=== PATIENT | female | born 1995 | race Caucasian/White ===

== ENCOUNTER 2024-12-22 09:33 | Inpatient (IN) | payer OTHER ==
[~2024-12-22] VITALS: Ht 167.6 cm; Wt 81.6 kg
--- NOTE | ~2024-12-22 | OR ---
[facility] [address], [place] [address] Draft DATE OF OPERATION: 12/23/2024 SURGEON: Taina Zheng DO PREOPERATIVE DIAGNOSES: 1. Intrauterine at 39 weeks gestation. 2. section by maternal request. 3. History of severe shoulder dystocia. 4. History of obstetric anal sphincter injury. POSTOPERATIVE DIAGNOSES: 1. Intrauterine at 39 weeks gestation. 2. section by maternal request. 3. History of severe shoulder dystocia. 4. History of obstetric anal sphincter injury. PROCEDURE PERFORMED: Primary low transverse section. 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 ANESTHESIA: Spinal with postoperative TAP blocks. COMPLICATIONS: None. DRAINS: Donahue to gravity. QUANTITATIVE BLOOD LOSS: 567 mL. SPECIMENS: Cord blood. FINDINGS: Delivery of viable female , 7 pounds 13 ounces with Apgars of 8 and 9 born in the HUMERA position via primary low transverse section. Normal uterus, tubes, and PATIENT NAME: CHANDLER CHEN OPERATIVE REPORT DATE OF : [birth year] REPORT #: [id number] PHYSICIAN: TAINA ZHENG (DEMARCUS) PCP: NO PRIMARY CARE PHYSICIAN REPORT IS CONFIDENTIAL AND NOT TO BE RELEASED WITHOUT AUTHORIZATION [address] [address] Draft ovaries. INDICATIONS: Ms. Chen is a very pleasant 29-year-old, G2, P1, who presents for primary . Last was complicated by undiagnosed macrosomia with resulting shoulder dystocia and injury including obstetric anal sphincter injury ([place]). After careful counseling, patient desires primary low-transverse section. Risks, benefits, and alternatives were discussed in detail with the patient. The patient understands and wished to proceed with the procedure. TECHNIQUE: The patient was taken the OR. A time-out was performed to confirm correct patient, correct procedure. Spinal anesthesia was adequately established. The patient was prepped and draped in the supine position with a bump on the right hip. Donahue catheter was inserted. Ancef 2 g preoperatively were given per SCIP protocol. No heparin was indicated. Once a neural axial anesthesia was adequate, a Pfannenstiel skin incision was made approximately 2 cm above the pubic symphysis and carried down to the fascia. The fascia was nicked in the midline. The fascial incision was extended bilaterally using curved Pantoja scissors. The rectus was divided from the fascia with a combination of blunt and sharp dissection. The peritoneum was entered bluntly and peritoneal incision was extended cephalad and caudad using sharp and blunt dissection. Brandon self retractor was placed and lower uterine segment identified. Hysterotomy was performed using a surgical scalpel for clear fluid. Hysterotomy was extended bilaterally using blunt dissection. The surgeon's hand was placed in the uterine cavity. The head elevated into the maternal abdomen and delivered with the assistance of fundal pressure. No nuchal cord was identified. The was vigorous and cried upon delivery. Cord was doubly clamped and cut and the handed to waiting pediatric team for further care. Cord blood was obtained for routine analysis. The placenta was expressed, intact with a centrally inserted three-vessel cord. Pitocin was administered per protocol and bleeding was quickly minimized. Hysterotomy was then repaired using 0 Monocryl in two layers. The first being a running lock suture and the second being a running imbricating suture in a vertical manner. Excellent hemostasis was appreciated. The pelvis was irrigated and found to be hemostatic. Normal uterus, tubes, and ovaries were appreciated. The Brandon self retractor was removed and the peritoneum was reapproximated using 2-0 Vicryl in a running nonlocked manner. The rectus was made hemostatic with judicious use of Bovie electrocautery and was loosely plicated in the midline using three interrupted sutures of 0 Vicryl. The fascia was then reapproximated using 0 Vicryl in a running nonlocked manner. Subcu was made hemostatic with Bovie electrocautery and was irrigated and found to be hemostatic. Subcu was reapproximated using 3-0 Vicryl in a running nonlocked manner. Skin was reapproximated using a subcuticular dissolvable christopher. The uterus was Crede'd for scant amount of blood. The patient remained in the OR for TAP block per Anesthesia. PATIENT NAME: CHANDLER CHEN OPERATIVE REPORT DATE OF : [birth year] REPORT #: [id number] PHYSICIAN: TAINA ZHENG (DEMARCUS) DO PCP: NO PRIMARY CARE PHYSICIAN REPORT IS CONFIDENTIAL AND NOT TO BE RELEASED WITHOUT AUTHORIZATION [facility] [address], [place] [address] Draft Sponge, needle, and instrument counts correct x2 at the end the procedure. Taina Zheng DO JDW/MODL /[id number] Copies: ~ PATIENT NAME: CHANDLER CHEN OPERATIVE REPORT DATE OF : [birth year] REPORT #: [id number] PHYSICIAN: TAINA ZHENG DO (JD) PCP: NO PRIMARY CARE PHYSICIAN REPORT IS CONFIDENTIAL AND NOT TO BE RELEASED WITHOUT AUTHORIZATION
[2024-12-22] MEDS ORDERED: LACTATED RINGER'S 1,000 ML IV SCH (17:45)
[2024-12-22] MEDS ORDERED: LACTATED RINGER'S 2,000 ML IV PRN (17:45)
[2024-12-23 05:41] LABS: AMPHETAMINES, URINE NEGATIVE (NEGATIVE); BARBITURATES, URINE NEGATIVE (NEGATIVE); BENZODIAZEPINE, URINE NEGATIVE (NEGATIVE); BUPRENORPHINE, URINE NEGATIVE (NEGATIVE); CANNABINOID, URINE NEGATIVE (NEGATIVE); COCAINE, URINE NEGATIVE (NEGATIVE); ECSTASY, URINE NEGATIVE (NEGATIVE); FENTANYL, URINE NEGATIVE (NEGATIVE); METHADONE, URINE NEGATIVE (NEGATIVE); OPIATES, URINE NEGATIVE (NEGATIVE); OXYCODONE, URINE NEGATIVE (NEGATIVE); PHENCYCLIDINE, URINE NEGATIVE (NEGATIVE)
[2024-12-23 05:57] LABS: HEMATOCRIT 33.4 % (35.0-50.0); MCH 30.6 (27-36); MCHC 35.8 g/dl (30-36); MCV 85.5 fl (81-99); RBC 3.91 M/ul (4.3-5.7); RDW 14.1 (10.5-15.0)
[2024-12-23 06:17] VITALS: BP 123/79
[2024-12-23 06:36] LABS: ABO B; ANTIBODY SCREEN NEGATIVE; RH POSITIVE
[2024-12-23] MEDS ORDERED: CEFAZOLIN SODIUM 2 GM/20 ML SYR IV SCH (07:00)
[2024-12-23] MEDS ORDERED: SOD+POT BICARB/CITRIC ACID 2 EA TABLET.EFF PO SCH (07:00)
[2024-12-23] MEDS ORDERED: fentaNYL citrate 100 MCG/2 ML VIAL ONE (11:09)
[2024-12-23] MEDS ORDERED: MORPHINE SULFATE 1 MG/ML VIAL ONE (11:09)
[2024-12-23] MEDS ORDERED: BUPIVACAINE 0.75% IN DEXTROSE 2 ML AMP ONE (11:09)
[2024-12-23] MEDS ORDERED: LIDOCAINE HCL 2% 5 ML SDV ONE (11:09)
[2024-12-23] MEDS ORDERED: SODIUM CHLORIDE 0.9% 40 ML IV ONE (11:09)
[2024-12-23] MEDS ORDERED: DEXAMETHASONE SOD PHOS 4 MG/ML VIAL ONE (11:09)
[2024-12-23] MEDS ORDERED: dexmedeTOMIDine HCl 200 MCG/2 ML VIAL ONE (11:09)
[2024-12-23] MEDS ORDERED: OXYTOCIN 10 UNITS/ML VIAL ONE (11:09)
[2024-12-23] MEDS ORDERED: Ropivacaine HCl 0.5% 30 ML VIAL ONE (11:09)
[2024-12-23] MEDS ORDERED: ondansetron HCL 4 MG/2 ML VIAL ONE (11:12)
[2024-12-23] MEDS ORDERED: PHENYLEPHRINE HCL 10 MG/ML VIAL ONE (12:14)
[2024-12-23] MEDS ORDERED: IBLOOD GLUCOSE TEST STRIP 1 EA TEST VI PRN (12:30)
[2024-12-23] MEDS ORDERED: diphenhydrAMINE HCL 50 MG/ML VIAL IV PRN ×2 (12:30)
[2024-12-23] MEDS ORDERED: NALOXONE HCL 0.4 MG SYR IV PRN ×2 (12:30)
[2024-12-23] MEDS ORDERED: HYDROmorphone HCL 1 MG/ML SYR IV PRN (12:30)
[2024-12-23] MEDS ORDERED: KETOROLAC TROMETHAMINE 30 MG/ML VIAL IV PRN ×2 (12:30)
[2024-12-23] MEDS ORDERED: fentaNYL citrate 50 MCG/ML SDV IV PRN (12:30)
[2024-12-23] MEDS ORDERED: ondansetron HCL 4 MG/2 ML VIAL IV PRN ×3 (12:30→13:30)
[2024-12-23] MEDS ORDERED: diphenhydrAMINE HCL 25 MG CAP PO PRN (12:30)
--- NOTE | 2024-12-23 13:15 | NUR ---
12/23/24 1315 Sheets,Rita 1258 PT ARRIVED TO PACU [facility] ROOM 104 WITH [facility] RN IN ROOM. PT DENIES CONCERNS. VSS. PT REPORTS SHE IS UNABLE TO MOVE HER FEET AND SPINAL EDUCATION GIVEN. IV IN LEFT HAND, WNL. 1305 BABY TO CHEST WITH [facility] RN.
[2024-12-23] MEDS ORDERED: LACTATED RINGER'S 1,000 ML IV SCH (13:23)
[2024-12-23] MEDS ORDERED: METOCLOPRAMIDE HCL 10 MG/2 ML SDV IV PRN (13:30)
[2024-12-23] MEDS ORDERED: HYDROCODONE/ACETA 5/325 TAB PO PRN (13:30)
[2024-12-23] MEDS ORDERED: bisacodyL 10 MG SUPP PR PRN (13:30)
[2024-12-23] MEDS ORDERED: OXYCODONE HCL 5 MG TAB PO PRN (13:30)
[2024-12-23] MEDS ORDERED: PROMETHAZINE HCL 25 MG SUPP PR PRN (13:30)
[2024-12-23] MEDS ORDERED: PROCHLORPERAZINE EDISYLATE 10 MG/2 ML VIAL IV PRN (13:30)
[2024-12-23] MEDS ORDERED: OXYTOCIN/0.9 % SODIUM CHLORIDE 500 ML IV SCH (13:30)
[2024-12-23] MEDS ORDERED: OXYCODONE/APAP 5/325 TAB PO PRN (13:30)
[2024-12-23] MEDS ORDERED: PROMETHAZINE HCL 25 MG TAB PO PRN (13:30)
[2024-12-23 13:40] VITALS: BP 105/65
[2024-12-23] MEDS ORDERED: KETOROLAC TROMETHAMINE 30 MG/ML VIAL IV SCH (14:00)
[2024-12-23] MEDS ORDERED: SIMETHICONE 80 MG CHEW PO SCH (16:00)
[2024-12-23] MEDS ORDERED: ENOXAPARIN SODIUM 40 MG/0.4 ML SYR SUB-Q SCH (21:00)
[2024-12-23] MEDS ORDERED: SENNOSIDES/DOCUSATE 1 EA TAB PO SCH (21:00)
[2024-12-24 05:27] LABS: HEMATOCRIT 28.2 % (35.0-50.0); HEMOGLOBIN 10.1 g/dL (12.0-18.0); MCH 30.6 (27-36); MCHC 35.6 g/dl (30-36); MCV 85.8 fl (81-99); RBC 3.29 M/ul (4.3-5.7); RDW 14.5 (10.5-15.0)
[2024-12-24] MEDS ORDERED: IBUPROFEN 600 MG TAB PO SCH (14:00)
== END 2024-12-25 15:05 | disposition home or self-care (01) | DRG 788 ==
LOC: FBC 12-23 05:01
PROVIDERS: ADMIT Obstetrics & Gynecology; ATTEND Obstetrics & Gynecology
PROC: 3E0R3GC Introduction of Other Therapeutic Substance into Spinal Canal, Percutaneous Approach (ICD-10-PCS; 2024-12-23)
PROC: 10907ZC Drainage of Amniotic Fluid, Therapeutic from Products of Conception, Via Natural or Artificial Opening (ICD-10-PCS; 2024-12-23)
PROC: 10D00Z1 Extraction of Products of Conception, Low, Open Approach (ICD-10-PCS; principal; 2024-12-23 07:30)
DX: O34.211 Maternal care for low transverse scar from previous cesarean delivery (principal); Z37.0 Single live birth; Z3A.39 39 weeks gestation of pregnancy; Z87.59 Personal history of other complications of pregnancy, childbirth and the puerperium
CPT/HCPCS: 01961; 36415; 76942; 80307; 85027; 86850; 86900; 86901; A9270; J0690; J1100; J1885; J2003; J2274; J2371; J2405; J2590; J2795; J3010; J7121